=== PATIENT | female | born 1980 | race Caucasian/White ===

== ENCOUNTER → 2017-12-03 | Day surgery (SDC) | payer OTHER ==
[~2017-12-03] VITALS: Ht 167.6 cm; Wt 68.0 kg
[~2017-12-03] MED LIST: MEDROL4 M2 PO; NORCO 5-325 TA1 EACH PO; PERCOCET 5-3251 EACH PO; SERTRALINE HCL100 MG PO; VITAMIN D250000 UNIT PO
--- NOTE | 2017-12-03 16:57 | Operative Report ---
Operative/Inv Procedure Report Surgery Date: 12/03/17 Name of Procedure: Robot-assisted laparoscopic recurrent incarcerated incisional hernia repair Explantation of prior surgical mesh Pre-Operative Diagnosis: Recurrent incarcerated incisional hernia Post-Operative Diagnosis: Same Estimated Blood Loss: scant Surgeon/Naturopathic Doctor: Herman BABIN,Bonifacio Dumont/Oliva BUCKNER Anesthesia: general endotracheal tube Implants: Parietex Symbicore mesh, 15 x 10 cm Specimens: Explanted mesh Operative/Procedure Note Note: After consent patient brought to the operating room laid supine. General anesthesia was obtained and her abdomen was prepped and draped. Peritoneal access was obtained using an optical 12 mm trocar in the left upper quadrant at Lin's point. This was done after local anesthesia was instilled. Pneumoperitoneum was achieved. 2, 8 mm ports were then placed in the left lower quadrant after local anesthesia was instilled under direct vision a camera. The robot was then docked and targeted. Instruments were placed. I then broke scrub and went to the console. There were numerous adhesions to the previously placed mesh which were taken down with cautery. Was mostly omentum. We then explored the abdomen. There is a hernia superior to the mesh. The peritoneum was taken down there with cautery and we identified a very large incarcerated fat-containing hernia. The hernia appeared to be due to tension from [place] suture from laparoscopic hernia mesh placement. The other bulges in her abdomen were not visible and on CT scan were related to subcutaneous retained foreign material. It was felt that this was likely related to hernia mesh. I then proceeded to perform explantation of the hernias mesh. This was performed with cautery. There were multiple tacks which were left in the mesh but a few escaped. We put them over the liver for later extraction. This portion the operation was quite difficult as the mesh was densely adherent. No fascial injury was performed however. Near the hernia midline repairs. There was mesh plug separate from the other mesh. This was painstakingly removed. There is also evidence of hernia sac and fatty incarcerated tissue that was never reduced from her prior repair. All this tissue was then taken down and reflected laterally. The result was 3 separate fascial defects. I closed them primarily in a running longitudinal fashion with 0 V lock absorbable suture. In the area in between the hernias, the fascia was imbricated. I then measured the defect and shows a 15 x 10 cm mesh to cover the closure. Mesh was hydrated rolled up and placed the peroneal cavity. It was then circumferentially fixed with a running fashion with 2-0V lock absorbable suture. In the center, the left over 0 suture was used to fix the mesh in the midline. [place] were then removed and passed off the field. The mesh was placed into an Endo Catch bag along with the residual tacks. The ports were then delivered and robot undocked. The mesh was extracted and passed off the field. Left upper quadrant fascia was then closed in 2 layers of 0 Vicryl suture. Skin incisions closed with 4-0 Vicryl. Steri- Strips and sterile dressing applied. Sponge and needle counts are correct CC: Samy BABIN,Jaswinder
== END ==
LOC: STS 03:57
DX: K43.0 Incisional hernia with obstruction, without gangrene (principal); K66.0 Peritoneal adhesions (postprocedural) (postinfection); F17.200 Nicotine dependence, unspecified, uncomplicated; J45.909 Unspecified asthma, uncomplicated; M19.90 Unspecified osteoarthritis, unspecified site
CPT/HCPCS: 49657; 22999; 64488; S2900; 81025; C1781; J0131; J0690; J1100; J2250; J3490

== ENCOUNTER 2018-03-02 09:34 | Emergency (ER) | payer OTHER ==
[~2018-03-02] VITALS: Ht 167.6 cm; Wt 70.3 kg
[2018-03-02 09:38] VITALS: BP 119/83
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
--- NOTE | 2018-03-02 11:10 | RADIOLOGY REPORT ---
EXAMINATION: XR KNEE, LEFT CLINICAL INFORMATION: Pain status-post injury. COMPARISON: None TECHNIQUE: AP, lateral, and both oblique views of the left knee. FINDINGS: Bones and soft tissues are normal. No fracture or joint effusion. Alignment is anatomic. Joint spaces are well maintained. No abnormal soft tissue calcification. IMPRESSION: Normal left knee.
[2018-03-02] MEDS ORDERED: PERCOCET 5-3251 EACH PO (11:23)
== END 2018-03-02 11:35 ==
LOC: ERH 09:34
DX: S80.02XA Contusion of left knee, initial encounter (principal); F17.210 Nicotine dependence, cigarettes, uncomplicated; W19.XXXA Unspecified fall, initial encounter
CPT/HCPCS: 73562-LT; 81025